=== PATIENT | male | born 1970 | race Two or more races ===

== ENCOUNTER 2019-04-04 08:25 | Inpatient (IN) | payer MEDICAID ==
[~2019-04-04] VITALS: Ht 170.2 cm; Wt 77.1 kg
[2019-04-04 08:30] VITALS: Ht 170.2 cm; Wt 77.1 kg
[2019-04-04 09:13] LABS: CALCIUM 8.9 mg/dL (8.5-10.1); CARBON DIOXIDE 27.5 mmol/L (21-32); CHLORIDE SERUM 103 mmol/L (98-107); CREATININE SERUM 0.8 mg/dL (0.7-1.3); GFR1 > 60 mL/min; GLUCOSE SERUM 97 mg/dL (74-106); SODIUM SERUM 140 mmol/L (136-145)
[2019-04-04 09:16] LABS: BASOPHIL % 0.6 % (0-2)
[2019-04-04 09:17] LABS: ALBUMIN 3.9 g/dL (3.4-5.0); ALKALINE PHOSPHATASE 110 U/L (46-116); ALT/SGPT 20 U/L (16-63); AST/SGOT 10 U/L (15-37); BILIRUBIN TOTAL 0.57 mg/dL (0.20-1.00); LIPASE 64 IU/L (73-393); TOTAL PROTEIN, SERUM 7.5 g/dL (6.4-8.2)
[2019-04-04 09:20] LABS: PLATELET COUNT 446 x10^3mcL (130-400); RED CELL DISTRIBUTION WIDTH 16.6 % (11.5-14.5)
[2019-04-04 10:23] LABS: microscopic required? YES; urine erythrocyte NEGATIVE (NEGATIVE)
[2019-04-04 15:09] LABS: CHOLESTEROL/HDL RATIO 5.2; MAGNESIUM 2.1 mg/dL (1.8-2.4); PHOSPHOROUS 4.2 mg/dL (2.5-4.9)
[2019-04-04 15:25] VITALS: BP 129/82
[2019-04-04 18:07] VITALS: BP 139/82
[2019-04-04 21:13] VITALS: BP 111/70
[2019-04-05 05:32] VITALS: BP 108/64
[2019-04-05 06:38] LABS: CALCIUM 8.5 mg/dL (8.5-10.1); CARBON DIOXIDE 23.6 mmol/L (21-32); CHLORIDE SERUM 109 mmol/L (98-107); CREATININE SERUM 0.7 mg/dL (0.7-1.3); GFR1 > 60 mL/min; GLUCOSE SERUM 91 mg/dL (74-106); MAGNESIUM 2.2 mg/dL (1.8-2.4); PHOSPHOROUS 4.9 mg/dL (2.5-4.9); SODIUM SERUM 146 mmol/L (136-145)
[2019-04-05 06:52] LABS: BASOPHIL % 0.1 % (0-2); PLATELET COUNT 411 x10^3mcL (130-400); RED CELL DISTRIBUTION WIDTH 16.4 % (11.5-14.5)
[2019-04-05 06:53] LABS: rbc morphology (normal/abnorm) ABNORMAL (NORMAL)
[2019-04-05 08:24] VITALS: BP 99/62
[2019-04-05 12:03] VITALS: BP 112/66
[2019-04-05 16:47] VITALS: BP 112/67
[2019-04-05 21:58] VITALS: BP 106/64
[2019-04-06 05:32] VITALS: BP 98/62
[2019-04-06 08:14] LABS: AMPHETAMINE QUAL UR NONE DETECTED (See below)
[2019-04-06 08:47] VITALS: BP 115/70
[2019-04-06 13:35] LABS: ALBUMIN 3.2 g/dL (3.4-5.0); ALKALINE PHOSPHATASE 101 U/L (46-116); ALT/SGPT 24 U/L (16-63); AST/SGOT 10 U/L (15-37); BASOPHIL % 0.4 % (0-2); BILIRUBIN TOTAL 0.4 mg/dL (0.20-1.00); CALCIUM 8.2 mg/dL (8.5-10.1); CARBON DIOXIDE 22.2 mmol/L (21-32); CHLORIDE SERUM 107 mmol/L (98-107); CREATININE SERUM 0.8 mg/dL (0.7-1.3); GFR1 > 60 mL/min; GLUCOSE SERUM 73 mg/dL (74-106); SODIUM SERUM 141 mmol/L (136-145); TOTAL PROTEIN, SERUM 6.5 g/dL (6.4-8.2)
[2019-04-06 13:36] LABS: PLATELET COUNT 424 x10^3mcL (130-400); RED CELL DISTRIBUTION WIDTH 17.1 % (11.5-14.5)
[2019-04-06 16:53] VITALS: BP 110/72
[2019-04-06 20:29] VITALS: BP 133/74
[2019-04-06 21:58] VITALS: BP 133/74
[2019-04-06 22:10] LABS: BASOPHIL % 0.5 % (0-2); PLATELET COUNT 441 x10^3mcL (130-400); RED CELL DISTRIBUTION WIDTH 16.8 % (11.5-14.5)
== END 2019-04-07 00:01 | disposition short-term general hospital (02) | DRG 240 ==
LOC: ED 08:25 → DU 13:16
PROVIDERS: Emergency Medicine; Internal Medicine Gastroenterology; ADMIT Internal Medicine
PROC: 0DBL8ZX Excision of Transverse Colon, Via Natural or Artificial Opening Endoscopic, Diagnostic (ICD-10-PCS; principal; 2019-04-06 10:00)
PROC: 0DBG8ZZ Excision of Left Large Intestine, Via Natural or Artificial Opening Endoscopic (ICD-10-PCS; 2019-04-06 10:00)
DX: C18.3 Malignant neoplasm of hepatic flexure (principal); D12.4 Benign neoplasm of descending colon; D50.9 Iron deficiency anemia, unspecified; N39.0 Urinary tract infection, site not specified; E78.5 Hyperlipidemia, unspecified; Z68.26 Body mass index [BMI] 26.0-26.9, adult
CPT/HCPCS: 45378; 83880; G0378; J1200; J1610; J1885; J2250; J2270; J2310; J2405; J3010; J3490; J7030; Q0092; Q9966; Q9967

== ENCOUNTER 2020-11-28 20:59 | Inpatient (IN) | payer OTHER ==
[~2020-11-28] VITALS: Ht 170.2 cm; Wt 70.8 kg
[2020-11-28 21:05] VITALS: Ht 170.2 cm; Wt 70.8 kg
[2020-11-28 22:39] LABS: BASOPHIL % 0.5 % (0.2-1.5); PLATELET COUNT 308 x10^3mcL (152-348)
[2020-11-28 22:42] LABS: RED CELL DISTRIBUTION WIDTH 17.3 % (12.1-16.2)
[2020-11-28 23:06] LABS: CARBON DIOXIDE 29.8 mmol/L (21-32); CHLORIDE SERUM 102 mmol/L (98-107); CREATININE SERUM 0.9 mg/dL (0.7-1.3); GFR1 > 60 mL/min; GLUCOSE SERUM 99 mg/dL (74-106); POTASSIUM SERUM 4.1 mmol/L (3.5-5.1); SODIUM SERUM 135 mmol/L (136-145)
[2020-11-28 23:11] LABS: ALBUMIN 3.4 g/dL (3.4-5.0); ALKALINE PHOSPHATASE 93 U/L (46-116); ALT/SGPT 26 U/L (16-63); AMYLASE 44 U/L (25-115); AST/SGOT 17 U/L (15-37); BILIRUBIN TOTAL 0.4 mg/dL (0.20-1.00); LIPASE 55 IU/L (73-393); TOTAL PROTEIN, SERUM 6.6 g/dL (6.4-8.2)
[2020-11-29] MEDS ORDERED: ACID REDUCER20 MG PO (00:51)
[2020-11-29] MEDS ORDERED: ULTRAM50 MG PO (00:52)
[2020-11-29] MEDS ORDERED: HYDROCODONE BIT10 MG PO (00:52)
[2020-11-29 02:45] VITALS: BP 145/88
[2020-11-29 05:47] VITALS: BP 116/78
[2020-11-29 07:12] LABS: PLATELET COUNT 323 x10^3mcL (152-348)
[2020-11-29 08:00] VITALS: BP 115/72
[2020-11-29 08:02] LABS: CALCIUM 8.5 mg/dL (8.5-10.1); CARBON DIOXIDE 27.7 mmol/L (21-32); CHLORIDE SERUM 103 mmol/L (98-107); CREATININE SERUM 0.9 mg/dL (0.7-1.3); GFR1 > 60 mL/min; GLUCOSE SERUM 83 mg/dL (74-106); SODIUM SERUM 138 mmol/L (136-145)
[2020-11-29 08:27] LABS: RED CELL DISTRIBUTION WIDTH 17.3 % (12.1-16.2)
[2020-11-29 11:47] VITALS: BP 114/72
[2020-11-29] MEDS ORDERED: SIMETHICONE80 MG PO (12:56)
[2020-11-29 13:47] VITALS: BP 114/72
== END 2020-11-29 15:09 | disposition home or self-care (01) | DRG 247 ==
LOC: ED 20:59 → MU 11-29 00:26
PROVIDERS: Emergency Medicine; ADMIT Internal Medicine; ATTEND Internal Medicine
DX: K56.609 Unspecified intestinal obstruction, unspecified as to partial versus complete obstruction (principal); C18.9 Malignant neoplasm of colon, unspecified; E78.00 Pure hypercholesterolemia, unspecified; Z20.822 Contact with and (suspected) exposure to COVID-19; Z79.899 Other long term (current) drug therapy; Z79.891 Long term (current) use of opiate analgesic; Z79.01 Long term (current) use of anticoagulants
CPT/HCPCS: G0378; J1650; J2270; J2405; J2765

== ENCOUNTER 2020-12-01 00:49 | Emergency (ER) | payer OTHER ==
[~2020-12-01] VITALS: Ht 167.6 cm; Wt 74.4 kg
[~2020-12-01 00:49] MED LIST: ACID REDUCER20 MG PO; HYDROCODONE BIT10 MG PO; SIMETHICONE80 MG PO; ULTRAM50 MG PO
[2020-12-01 01:18] VITALS: Ht 167.6 cm; Wt 74.4 kg
--- NOTE | 2020-12-01 03:53 | NUR ---
PT BIB SON C/O SUPRAPUBIC PAIN 07/02. PT STS THAT THE PAIN BEGAN AROUND NOON TODAY IN THE RLQ AND MOVED TO THE MEDIAL ABD AND IS NOW IN THE SUPRAPUBIC REGION. PT STS THAT HE WAS SEEN HERE ON MONDAY WHICH RESULTED IN DX OF BOWEL OBSTRUCTION AND HAD AN NG TUBE PLACED. PT STS THAT PRIOR TO PREVIOUS VISIT, HE WAS NOT ABLE TO PASS GAS OR DEFACATE BUT NOW IS ABLE TO DEFACATE AND PASS GAS BUT THERE IS A LOT OF PAIN ASSOCIATED WITH DEFACATION. PT STS THAT HE HAS DIARRHEA 10 MIN S/P INGESTION OF FOOD AND EXPERIENCES INTERMITTENT PAIN. PT REPORTS TAKING 1G TYLENOL AT 2300 11/30/20. PT NAD NOTED, RESP E/U, AAOX4 IN [facility] [place] AT LOWEST POSITION FOR SAFETY
[2020-12-01 05:11] LABS: PLATELET COUNT 321 x10^3mcL (152-348)
[2020-12-01 05:13] LABS: RED CELL DISTRIBUTION WIDTH 17.7 % (12.1-16.2)
--- NOTE | 2020-12-01 05:13 | NUR ---
PT TOLERATED FINE ARTS CHAIR AND BLOOD DRAW WELL, NAD NOTED, RESP E/U, AAOX4
[2020-12-01 05:20] LABS: CALCIUM 9.1 mg/dL (8.5-10.1); CARBON DIOXIDE 29.1 mmol/L (21-32); CHLORIDE SERUM 99 mmol/L (98-107); CREATININE SERUM 0.9 mg/dL (0.7-1.3); GFR1 > 60 mL/min; GLUCOSE SERUM 116 mg/dL (74-106); POTASSIUM SERUM 3.6 mmol/L (3.5-5.1); SODIUM SERUM 136 mmol/L (136-145)
[2020-12-01 05:24] LABS: ALBUMIN 3.6 g/dL (3.4-5.0); ALKALINE PHOSPHATASE 100 U/L (46-116); ALT/SGPT 27 U/L (16-63); AST/SGOT 20 U/L (15-37); BILIRUBIN TOTAL 0.41 mg/dL (0.20-1.00); LIPASE 83 IU/L (73-393); TOTAL PROTEIN, SERUM 7.3 g/dL (6.4-8.2)
[2020-12-01 05:36] LABS: UA SPECIFIC GRAVITY >=1.030 (1.005-1.035); microscopic required? YES; urine erythrocyte NEGATIVE (NEGATIVE)
--- NOTE | 2020-12-01 05:50 | NUR ---
PT IN GURNEY RESTING SUPINE, NAD NOTED, RESP E/U, AAOX4 DOES NOT C/O ANYTHING AT THIS TIME BESIDES SUPRAPUBIC PAIN.
--- NOTE | 2020-12-01 06:47 | NUR ---
PT BACK FROM CT, CONNECTED BACK ONTO TKO NS, AND FULL MONITORS. PT STS HIS PAIN REMAINS THE SAME AT 6/10 IN THE SUPRAPUBIC ABD REGION AND DOES NOT C/O ANYTHING ELSE AT THIS TIME
--- NOTE | 2020-12-01 07:04 | NUR ---
RECEIVED REPORT FROM NAE WILL RESUME CARE OF PT
--- NOTE | 2020-12-01 07:16 | NUR ---
REPORT GIVEN TO ZULEIKA BONILLA TO ASSUME CARE OF PT AT THIS TIME
--- NOTE | 2020-12-01 09:08 | NUR ---
pt ready for discharge, both written and verbal after care instructions provided. dc'd iv.
--- NOTE | 2020-12-01 09:59 | NUR ---
PT IS SITTING IN BED, A&OX4, NO ACUTE DISTRESS NOTED. VSS STABLE, SAFETY PRECAUTIONS IN PLACE, CALL LIGHT WITHIN REACH.
--- NOTE | 2020-12-01 12:37 | NUR ---
UPON ENTERING ROOM, PT IS SITTING UP, VSS STABLE, STATES PAIN 7/10, SAFETY PRECAUTIONS IN PLACE, CALL LIGHT WITHIN REACH, WILL CONTINUE TO MONITOR.
--- NOTE | 2020-12-01 12:48 | NUR ---
DR CEBALLOS CONSULTING WITH PATIENT FOR SURGERY
--- NOTE | 2020-12-01 13:14 | NUR ---
SPOKE WITH PT, PT STATED THAT HE SIGN AMA AND GO TO [facility], BECAUSE HE DOES NOT WANT THE SURGERY HERE AT [place], DR. PORRAS MADE AWARE, PAGED EXCHANGE FOR ADMITTED DOCTOR, DR. VALENCIA.
--- NOTE | 2020-12-01 13:53 | NUR ---
REPORTED TO DR. COPPOLA PT IS REFUSING SURGERY, IS REQUESTING TO SIGN OUT AMA AND DO TO [facility], PER DR. COPPOLA, OK HAVE PT SIGN AMA FORM.
--- NOTE | 2020-12-01 14:10 | NUR ---
SPOKE WITH ANAT AGAIN, TO CLARIFY PT CAN SIGN AMA, PER DR. COPPOLA, PT CAN SIGN OUT AMA, ITS PT RIGHT TO SIGN OUT AMA, DR. ASHRAF SPOKE WITH PT IN REGARDS TO AMA.
[2020-12-01 14:18] VITALS: BP 121/80
--- NOTE | 2020-12-01 14:40 | NUR ---
PT SIGNED AMA AND AMBULATED OUT OF ER WITH STEADY GAIT WITH NO DISTRESS NOTED AT THIS TIME.
== END 2020-12-01 14:40 | disposition admitted as inpatient to this hospital (09) ==
LOC: ED 00:49 → MU 09:12 → ED 09:12 → MU 13:15 → DU 13:15 → ED 14:40
PROVIDERS: Emergency Medicine
DX: K56.609 Unspecified intestinal obstruction, unspecified as to partial versus complete obstruction (principal); E78.00 Pure hypercholesterolemia, unspecified; Z20.828 Contact with and (suspected) exposure to other viral communicable diseases
CPT/HCPCS: J1885; J2405; J7030; Q9966